=== PATIENT | female | born 1970 ===

== ENCOUNTER 2016-10-17 09:42 | Emergency (ER) | payer OTHER ==
[2016-10-17 10:45] VITALS: BP 146/86
--- NOTE | 2016-10-17 11:04 | UC ---
Lower Extremity/Ankle HPI - HPI Summary HPI Summary: right ankle pain x 1 day s/p inversion injury to left ankle one day ago + pain and swelling of the right ankle - History of Current Complaint Chief Complaint: UCLowerExtremity Stated Complaint: RIGHT ANKLE INJURY Time Seen by Provider: 10/17/16 10:51 Hx Obtained From: Patient Hx Last Menstrual Period: 09/29/16 ?: No Onset/Duration: Sudden Onset, Lasting Days - 1, Still Present Severity Initially: Moderate Severity Currently: Moderate Aggravating Factor(s): Standing, Ambulation Alleviating Factor(s): Rest, Elevation, Ice Able to Bear Weight: Yes - Risk Factors DVT Risk Factors: Negative - Allergies/Home Medications Allergies/Adverse Reactions: Allergies Allergy/AdvReac Type Severity Reaction Status Date / Time No Known Allergies Allergy Verified 10/17/16 10:39 PMH/Surg Hx/FS Hx/Imm Hx Previously Healthy: Yes - Surgical History Surgical History: None - Family History Known Family History: Negative: Diabetes - Social History Alcohol Use: Occasionally Substance Use Type: None Smoking Status (MU): Never Smoked Tobacco Review of Systems Constitutional: Negative Skin: Negative Eyes: Negative ENT: Negative Respiratory: Negative Musculoskeletal: Other: - right ankle pain All Other Systems Reviewed And Are Negative: Yes Physical Exam Triage Information Reviewed: Yes Appearance: Well-Appearing, No Pain Distress, Well-Nourished Vital Signs: Initial Vital Signs Temp 98.4 F 10/17/16 10:40 Pulse 80 10/17/16 10:40 Resp 16 10/17/16 10:40 BP 146/86 10/17/16 10:40 Pulse Ox 98 10/17/16 10:40 Vital Signs Reviewed: Yes Eye Exam: Normal Eyes: Positive: Conjunctiva Clear ENT: Positive: Normal ENT inspection, Hearing grossly normal Neck: Positive: Nontender, No Lymphadenopathy Respiratory: Positive: Chest non-tender, Lungs clear, Normal breath sounds Cardiovascular: Positive: RRR, No Murmur, Pulses Normal Abdominal Exam: Normal Musculoskeletal: Positive: Other: - right ankle : + swelling lateral ankle, + tenderness lateral ankle , good ROM on flexion and extesntion , limited strength Lower Extremity Course/Dx - Differential Dx/Diagnosis Provider Diagnoses: sprain right ankle Discharge - Discharge Plan Condition: Stable Disposition: HOME Patient Education Materials: Ankle Sprain (ED) Referrals: Lidia Garcia MD [Primary Care Provider] - 7 Days
--- NOTE | 2016-10-17 11:30 | RAD ---
Indication: Right ankle injury. 3 views of the right ankle demonstrates no fracture. Soft tissue swelling is noted. No other bone or joint abnormality is noted. IMPRESSION: No fracture of the right ankle is noted.
== END 2016-10-17 11:55 | disposition home or self-care (01) ==
LOC: UCCORT 09:42
DX: S93.401A Sprain of unspecified ligament of right ankle, initial encounter (principal); X50.1XXA Overexertion from prolonged static or awkward postures, initial encounter; Y93.9 Activity, unspecified; Y92.9 Unspecified place or not applicable
CPT/HCPCS: 99212; G0463

== ENCOUNTER 2017-02-14 19:22 | Emergency (ER) | payer OTHER ==
[2017-02-14 19:57] VITALS: BP 133/68
--- NOTE | 2017-02-14 21:30 | UC ---
Respiratory Complaint HPI - HPI Summary HPI Summary: C/O sore throat and cough with chills going on 1 week. Now with ear pain. - History of Current Complaint Chief Complaint: UCRespiratory Stated Complaint: ST, EAR ACHE, CONGESTION Time Seen by Provider: 02/14/17 21:24 Hx Obtained From: Patient Hx Last Menstrual Period: 09/29/16 ?: No Onset/Duration: Gradual Onset, Lasting Weeks - 1, Worse Since - today Timing: Constant Severity Initially: Mild Severity Currently: Moderate Character: Cough: Nonproductive Alleviating Factors: Nothing Associated Signs And Symptoms: Positive: Chills, Wheezing, URI, Nasal Congestion , Hoarseness - Allergies/Home Medications Allergies/Adverse Reactions: Allergies Allergy/AdvReac Type Severity Reaction Status Date / Time No Known Allergies Allergy Verified 02/14/17 19:53 PMH/Surg Hx/FS Hx/Imm Hx Endocrine History: Hypothyroidism Cardiovascular History: Hypertension - Surgical History Surgical History: None - Family History Known Family History: Positive: Hypertension Negative: Diabetes - Social History Occupation: Employed Full-time Lives: With Family Alcohol Use: Occasionally Substance Use Type: None Smoking Status (MU): Never Smoked Tobacco - Immunization History Most Recent Influenza Vaccination: none Review of Systems Constitutional: Fever, Chills ENT: Sore Throat, Ear Ache Respiratory: Cough Is Patient Immunocompromised?: No All Other Systems Reviewed And Are Negative: Yes Physical Exam Triage Information Reviewed: Yes Appearance: Well-Nourished, Ill-Appearing Vital Signs: Initial Vital Signs Temp 99.1 F 02/14/17 19:54 Pulse 73 02/14/17 19:54 Resp 16 02/14/17 19:54 BP 133/68 02/14/17 19:54 Pulse Ox 100 02/14/17 19:54 Vital Signs Reviewed: Yes Eyes: Positive: Conjunctiva Clear ENT: Positive: Pharynx normal, Nasal congestion, TM dull - AD with pus behind ear drum Neck exam: Normal Respiratory: Positive: Wheezing - expiratory wheezes. Cardiovascular Exam: Normal Musculoskeletal Exam: Normal Neurological Exam: Normal Psychological Exam: Normal Skin Exam: Normal UC Diagnostic Evaluation - Laboratory O2 Sat by Pulse Oximetry: 100 Respiratory Course/Dx - Differential Dx/Diagnosis Differential Diagnosis/HQI/PQRI: Asthma, Lower Resp Infection, Sinusitis Provider Diagnoses: Acute URI. Acute bronchospasm. Acute right otitis media Discharge - Discharge Plan Condition: Stable Disposition: HOME Prescriptions: Amoxicillin PO (*) [Amoxicillin 875 MG (*)] 875 mg PO BID #20 tab predniSONE TAB* [Deltasone TAB*] 20 mg PO DAILY #18 tab Patient Education Materials: Upper Respiratory Infection (ED), Bronchospasm (ED ), Prednisone (By mouth), Otitis Media (ED), Amoxicillin (By mouth) Referrals: Lidia Garcia MD [Primary Care Provider] - Additional Instructions: NASAL SPRAYS AND DROPS: Afrin in the PUMP/ MIST bottle (Get generic 12 hours nasal decongestant spray). Tilt your head down and look at the floor while doing a strong sniff with the spray. Decongestant nasal sprays and drops often give dramatic relief from congestion. They are often recommended for patients with sinus infection to assist with sinus drainage. Persons with high blood pressure should consult the doctor before using these nasal sprays. Afrin and Ed-Synephrine are common [id number] preparations. They should not be used for more than five days, as "rebound" congestion can occur - - the congestion flares as the drug wears off. A way of dealing with this rebound congestion problem is to medicate only one nostril each time, allowing the other nostril to recover from the medicine' s effects. When you no longer need the drug during the day, spray only one nostril each night. This helps you sleep well without severe rebound congestion. Call the doctor if you develop severe headache, palpitations, or chest pain.
[2017-02-14] MEDS ORDERED: predniSONE TAB* 20 MG PO ONE (21:31)
[2017-02-14] MEDS ORDERED: Amoxicillin PO (*) 500 MG CAP PO ONE (21:31)
== END 2017-02-14 21:43 | disposition home or self-care (01) ==
LOC: UCCORT 19:22
DX: J06.9 Acute upper respiratory infection, unspecified (principal); J98.01 Acute bronchospasm; H66.91 Otitis media, unspecified, right ear; E03.9 Hypothyroidism, unspecified; I10 Essential (primary) hypertension
CPT/HCPCS: 99212; A9270-GY; G0463; J7512